=== PATIENT | female | born 1995 | race Hispanic/Latino ===

== ENCOUNTER → 2018-02-03 | Outpatient (REF) | payer OTHER | LOC: M SMT 17:10 | DX: N20.0 Calculus of kidney (principal) ==

== ENCOUNTER → 2018-08-04 | Outpatient (CLI) | payer OTHER ==
--- NOTE | 2018-08-04 15:38 | REP ---
Clinical: Kidney stone. Technique: Single supine view of the abdomen and pelvis. Findings: No obvious urinary tract calcifications are appreciated, but evaluation is somewhat limited due to overlying bowel gas. No bowel obstruction. No organomegaly. No significant abnormal calcifications. Skeletal structures are intact. Impression: No obvious urinary tract calcification appreciated. Electronically Signed by Matthew Lopez MD 08/04/2018 03:28 P
== END ==
LOC: M SMT 15:01
PROVIDERS: ATTEND Nurse Practitioner Family
DX: N20.0 Calculus of kidney (principal)